=== PATIENT | female | born 1960 | race Caucasian/White ===

== ENCOUNTER 2018-12-22 10:51 | Emergency (ER) | payer OTHER ==
[~2018-12-22] VITALS: Ht 182.9 cm; Wt 97.5 kg
[~2018-12-22 10:51] MED LIST: ALBU3IS INH; ALBU90OI6 INH; AMOCLA875 PO; AZIT250; AZIT250 PO; Amoxicillin500 MG PO; BENZ100A PO; Bupropion Xl150 MG PO; DIAZ10; DIAZ10 PO; DIAZ5 PO; DULO60 PO; LEVO750 PO; PRED20 PO; Prednisone20 MG PO; QVAR7.3 G1 INH; ROBITUSSIN COU118 M1 PO; SACC250C PO; SERT50 PO
[2018-12-22 11:40] LABS: BASOPHILS ABSOLUTE AUTO 0.03 K/mm3 (0.00-0.23); BASOPHILS PERCENT AUTO 0 % (0-2); EOSINOPHILS ABSOLUTE AUTO 0.26 K/mm3 (0.00-0.68); EOSINOPHILS PERCENT AUTO 3 % (0-6); Hematocrit 33.6 % (33.0-51.0); Hemoglobin 10.3 g/dL (11.5-16.0); IMMATURE GRAN ABSOLUTE AUTO 0.04 K/mm3 (0.00-0.10); IMMATURE GRAN PERCENT AUTO 0 % (0-1); LYMPHOCYTES ABSOLUTE AUTO 1.03 K/mm3 (0.84-5.20); LYMPHOCYTES PERCENT AUTO 10 % (21-46); MONOCYTES ABSOLUTE AUTO 1.02 K/mm3 (0.16-1.47); MONOCYTES PERCENT AUTO 10 % (4-13); Mean Corpuscular HGB 28.6 pg (26.0-34.0); Mean Corpuscular HGB Conc 30.7 g/dL (31.5-36.5); Mean Corpuscular Volume 93 fL (80-100); NEUTROPHILS ABSOLUTE AUTO 8.01 K/mm3 (1.96-9.15); NEUTROPHILS PERCENT AUTO 77 % (41-73); Platelet Count 356 K/mm3 (150-400); RDW Coefficient Variation 14.7 % (11.7-14.2); RDW Standard Deviation 51.1 fL (35.1-46.3); White Blood Cell Count 10.39 K/mm3 (4.00-11.30)
[2018-12-22 12:09] LABS: Alanine Aminotransfer (ALT/SGP 23 U/L (12-78); Albumin/Globulin Ratio 0.7 (0.8-1.8); Alk Phos 144 U/L (50-136); Anion Gap 5 mmol/L (6-16); Aspartate Aminotrans (AST/SGOT 21 U/L (12-37); Bilirubin, Total 0.3 mg/dL (0.1-1.0); Blood Urea Nitrogen 23 mg/dL (8-24); CO2, Blood 26 mmol/L (21-32); Calcium, Blood 8.5 mg/dL (8.5-10.1); Chloride, Blood 108 mmol/L (98-108); Creatinine, Blood 0.92 mg/dL (0.40-1.00); Globulin, Blood 4.3 g/dL (2.2-4.0); Glomerular Filtration Rate >60 (60-); Glucose, Blood 105 mg/dL (70-99); Potassium, Blood 4.4 mmol/L (3.5-5.5); Sodium, Blood 139 mmol/L (136-145); Total Protein, Blood 7.3 g/dL (6.4-8.2)
[2018-12-22] MEDS ORDERED: LISI20 PO (13:06)
[2018-12-22] MEDS ORDERED: DOXY100 (13:06)
[2018-12-22] MEDS ORDERED: BUDE6HFA (13:06)
[2018-12-22] MEDS ORDERED: PROM25 (13:06)
[2018-12-22] MEDS ORDERED: OMEPRAZOLE20 MG (13:07)
[2018-12-22] MEDS ORDERED: Bactrim Ds Tab1 EACH PO (14:25)
== END 2018-12-22 14:30 | disposition home or self-care (01) ==
LOC: ER 10:51
PROVIDERS: Physician Assistant
DX: L03.115 Cellulitis of right lower limb (principal); I10 Essential (primary) hypertension; J45.909 Unspecified asthma, uncomplicated; Z79.899 Other long term (current) drug therapy
CPT/HCPCS: 36415; 73610; 80053; 85025; 93971; 96365; 96375; 99284-25; J1885

== ENCOUNTER 2019-02-26 14:36 | Emergency (ER) | payer OTHER ==
[~2019-02-26] VITALS: Ht 180.3 cm; Wt 90.7 kg
[~2019-02-26 14:36] MED LIST changes: +BUDE6HFA; +Bactrim Ds Tab1 EACH PO; +DOXY100; +LISI20 PO; +OMEPRAZOLE20 MG; +PROM25
[2019-02-26] MEDS ORDERED: Buspirone HCl7.5 MG PO (14:47)
[2019-02-26] MEDS ORDERED: Augmentin 875-1 EACH PO (15:26)
== END 2019-02-26 15:34 | disposition home or self-care (01) ==
LOC: ER 14:36
DX: S61.451A Open bite of right hand, initial encounter (principal); I10 Essential (primary) hypertension; J45.909 Unspecified asthma, uncomplicated; Z87.891 Personal history of nicotine dependence; Z87.01 Personal history of pneumonia (recurrent); Z79.899 Other long term (current) drug therapy; W55.01XA Bitten by cat, initial encounter
CPT/HCPCS: 73130; 90471; 90714; 99283-25

== ENCOUNTER 2020-05-14 18:15 | Emergency (ER) | payer OTHER ==
[~2020-05-14] VITALS: Ht 182.9 cm; Wt 99.8 kg
[~2020-05-14 18:15] MED LIST changes: +Augmentin 875-1 EACH PO; +Buspirone HCl7.5 MG PO
[2020-05-14 18:50] LABS: BASOPHILS ABSOLUTE AUTO 0.05 K/mm3 (0.00-0.23); BASOPHILS PERCENT AUTO 0 % (0-2); EOSINOPHILS ABSOLUTE AUTO 0.43 K/mm3 (0.00-0.68); EOSINOPHILS PERCENT AUTO 3 % (0-6); Hematocrit 36.7 % (33.0-51.0); Hemoglobin 11.2 g/dL (11.5-16.0); IMMATURE GRAN ABSOLUTE AUTO 0.05 K/mm3 (0.00-0.10); IMMATURE GRAN PERCENT AUTO 0 % (0-1); LYMPHOCYTES ABSOLUTE AUTO 1.23 K/mm3 (0.84-5.20); LYMPHOCYTES PERCENT AUTO 10 % (21-46); MONOCYTES ABSOLUTE AUTO 1.33 K/mm3 (0.16-1.47); MONOCYTES PERCENT AUTO 11 % (4-13); Mean Corpuscular HGB 27.3 pg (26.0-34.0); Mean Corpuscular HGB Conc 30.5 g/dL (31.5-36.5); Mean Corpuscular Volume 89 fL (80-100); Mean Platelet Volume 9.6 fL (9.1-12.4); NEUTROPHILS ABSOLUTE AUTO 9.38 K/mm3 (1.96-9.15); NEUTROPHILS PERCENT AUTO 75 % (41-73); Platelet Count 344 K/mm3 (150-400); RDW Coefficient Variation 14.7 % (11.7-14.2); RDW Standard Deviation 48.1 fL (35.1-46.3); Red Blood Cell Count 4.11 M/mm3 (3.80-5.20); White Blood Cell Count 12.47 K/mm3 (4.00-11.30)
[2020-05-14 19:13] LABS: Alanine Aminotransfer (ALT/SGP 18 U/L (12-78); Albumin, Blood 3.2 g/dL (3.4-5.0); Albumin/Globulin Ratio 0.7 (0.8-1.8); Alk Phos 129 U/L (50-136); Anion Gap 3 mmol/L (6-16); Aspartate Aminotrans (AST/SGOT 18 U/L (12-37); Bilirubin, Total 0.4 mg/dL (0.1-1.0); Blood Urea Nitrogen 20 mg/dL (8-24); CO2, Blood 27 mmol/L (21-32); Calcium, Blood 8.5 mg/dL (8.5-10.1); Chloride, Blood 106 mmol/L (98-108); Creatinine, Blood 0.83 mg/dL (0.40-1.00); Globulin, Blood 4.3 g/dL (2.2-4.0); Glomerular Filtration Rate >60 (60-); Glucose, Blood 132 mg/dL (70-99); Potassium, Blood 3.8 mmol/L (3.5-5.5); Sodium, Blood 136 mmol/L (136-145); Total Protein, Blood 7.5 g/dL (6.4-8.2); Troponin I <0.015 ng/mL (0.000-0.040)
[2020-05-14] MEDS ORDERED: CEPH500 PO (20:53)
== END 2020-05-14 21:02 | disposition home or self-care (01) ==
LOC: ER 18:15
PROVIDERS: Emergency Medicine
DX: L03.116 Cellulitis of left lower limb (principal); L03.115 Cellulitis of right lower limb; I10 Essential (primary) hypertension; J45.909 Unspecified asthma, uncomplicated; Z79.51 Long term (current) use of inhaled steroids; Z79.899 Other long term (current) drug therapy
CPT/HCPCS: 36415; 71045; 73130; 80053; 83880; 84484; 85025; 93005; 93010; 99284-25; A9270

== ENCOUNTER 2022-08-02 01:11 | Day surgery (SDC) | payer OTHER ==
[~2022-08-02 01:11] MED LIST changes: +CEPH500 PO
== END 2022-08-02 22:37 | disposition home or self-care (01) ==
LOC: WOUND 01:11
DX: I87.313 Chronic venous hypertension (idiopathic) with ulcer of bilateral lower extremity (principal); L97.812 Non-pressure chronic ulcer of other part of right lower leg with fat layer exposed; L97.822 Non-pressure chronic ulcer of other part of left lower leg with fat layer exposed; L03.113 Cellulitis of right upper limb; L03.115 Cellulitis of right lower limb; L03.116 Cellulitis of left lower limb; L98.9 Disorder of the skin and subcutaneous tissue, unspecified; R60.0 Localized edema; I73.9 Peripheral vascular disease, unspecified; I10 Essential (primary) hypertension; J45.909 Unspecified asthma, uncomplicated
CPT/HCPCS: 87070; 87077; 87147; 87186; 87205; A9270; G0463

== ENCOUNTER 2023-03-17 18:39 | Emergency (ER) | payer OTHER ==
[~2023-03-17] VITALS: Ht 182.9 cm; Wt 90.7 kg
[2023-03-17] MEDS ORDERED: AMOCLA875 PO ×2 (20:51→21:35)
[2023-03-17 21:01] VITALS: BP 128/74
== END 2023-03-17 21:46 | disposition home or self-care (01) ==
LOC: ER 18:39
DX: S91.011A Laceration without foreign body, right ankle, initial encounter (principal); I10 Essential (primary) hypertension; J45.909 Unspecified asthma, uncomplicated; W54.0XXA Bitten by dog, initial encounter; Z79.51 Long term (current) use of inhaled steroids; Z79.899 Other long term (current) drug therapy
CPT/HCPCS: 12004; 73610; 90471; 90714; 96372-59; 99283-25; A9270; J1885

== ENCOUNTER 2023-04-24 11:42 | Emergency (ER) | payer OTHER ==
[~2023-04-24] VITALS: Ht 182.9 cm; Wt 90.7 kg
[2023-04-24 11:49] VITALS: BP 182/94
[2023-04-24] MEDS ORDERED: Bactrim Ds Tab1 EACH PO (13:30)
[2023-04-24] MEDS ORDERED: CEPH500 PO (13:30)
== END 2023-04-24 13:37 | disposition home or self-care (01) ==
LOC: ER 11:42
DX: S52.592A Other fractures of lower end of left radius, initial encounter for closed fracture (principal); W01.0XXA Fall on same level from slipping, tripping and stumbling without subsequent striking against object, initial encounter
CPT/HCPCS: 29125; 73090; 73100; 96372; 96372-59; 99283-25; J1885

== ENCOUNTER 2023-08-15 17:19 | Emergency (ER) | payer OTHER ==
[~2023-08-15] VITALS: Ht 180.3 cm; Wt 90.7 kg
[~2023-08-15 17:19] MED LIST changes: +BUPRENORPHIN-N1 EAC1 SL; +CATAPRES0.1 MG PO; +Desyrel150 MG PO; +GABA300 PO; +VISBIOME 112.51 EACH PO
[2023-08-15 17:44] VITALS: BP 159/97
== END 2023-08-15 18:27 | disposition home or self-care (01) ==
LOC: ER 17:19
DX: T81.41XA Infection following a procedure, superficial incisional surgical site, initial encounter (principal); L03.115 Cellulitis of right lower limb; I10 Essential (primary) hypertension; J45.909 Unspecified asthma, uncomplicated; Z79.2 Long term (current) use of antibiotics; Z79.51 Long term (current) use of inhaled steroids; Z79.899 Other long term (current) drug therapy
CPT/HCPCS: 99282